=== PATIENT | female | born 1985 | race Caucasian/White ===

== ENCOUNTER 2023-07-22 20:15 | Emergency (ER) | payer OTHER ==
[2023-07-22 20:41] VITALS: BP 107/70; PULSE 94; RESP 18; TEMP 97.8; BMI 21.7
[2023-07-22 22:25] LABS: ALBUMIN 4.5 g/dl (3.4-5.0); BILIRUBIN,TOTAL 0.5 mg/dl (0.2-1); CALCIUM 9.9 mg/dl (8.5-10.1); CREATININE 0.9 mg/dl (0.6-1.3); POTASSIUM 4.4 mmol/L (3.5-5.1); TOT PROT 7.2 g/dl (6.4-8.2)
[2023-07-22 22:33] LABS: HEMATOCRIT 36.5 % (32.4-45.2); HEMOGLOBIN 12.1 G/dL (10.7-15.3); MCH 28.3 pg (25.7-33.7); MCHC 33.1 g/dl (32.0-36.0); MEAN CELL VOLUME 85.5 fl (80-96); MEAN PLT VOLUME 7.3 fl (7.5-11.1); PLATELET COUNT 328.1 10^3/uL (134-434); RBC 4.27 10^6/uL (3.60-5.2); RDW 14.1 % (11.6-15.6); WHITE BLOOD COUNT 10.1 10^3/uL (4.0-10.8)
[2023-07-22 23:18] LABS: PLATELET ESTIMATE ADEQUATE
== END 2023-07-22 23:52 | disposition home or self-care (01) ==
LOC: FER 20:15
DX: O26.891 Other specified pregnancy related conditions, first trimester (principal); R10.30 Lower abdominal pain, unspecified; Z3A.00 Weeks of gestation of pregnancy not specified
CPT/HCPCS: 36415; 80053; 81003; 84702; 85027; 99283-25